=== PATIENT | male | born 1985 | race American Indian/Alaskan Native ===

== ENCOUNTER 2022-12-09 19:14 | Observation (INO) | payer MEDICAID ==
[2022-12-09] MEDS ORDERED: Zofran 4 MG/2 ML VIAL IV ONE (20:01)
[2022-12-09] MEDS ORDERED: PROTONIX 40 MG IV IV ONE ×2 (20:01→21:18)
[2022-12-09] MEDS ORDERED: Sodium Chloride 0.9% 1000 ML 1,000 ML IV STA (20:01)
--- NOTE | 2022-12-09 20:12 | ERPHSYRPT ---
- History of Present Illness Patient Subjective Stated Complaint: [facility] states that someone called in a person walking along [facility] [address] [facility], when he spoke to the patient he had some concerns about his well being. pt reports that he has a headache with photophobia and his feet are hurting from blisters. pt reports that he is currently homeless and has been outside a lot, mostly walking and hitchhiking. Triage Nursing Assessment: pt is aox3, pt with rambling speech but answers questions appropriately, pt afebrile, resps easy and non labored, pt with eyes closed tightly, pt reluctant to open eyes, pt radial pulses strong and equal, cap refill < 2 seconds, pt skin pink warm dry. pt with poor personal hygeine. Physician History: pt presents with law enforcement, [facility] with the [facility] states that someone called in a person walking along [facility], when he spoke to the patient he had some concerns about his well being. pt reports that he has a headache with photophobia and his feet are hurting from blisters. pt reports that he is currently homeless and has been outside a lot, mostly walking and hitchhiking. c/o abdominal pain. loss of appetite, has rambling speech Timing/Duration: today Associated Symptoms: abdominal pain, headaches Allergies/Adverse Reactions: No Known Drug Allergies Allergy (Unverified 12/09/22 19:51) Home Medications: No Reportable Medications [No Reported Medications] 12/09/22 [History] Hx Tetanus, Diphtheria Vaccination/Date Given: Yes Hx Influenza Vaccination/Date Given: No Hx Pneumococcal Vaccination/Date Given: No Immunizations Up to Date: No Travel Risk - International Travel Have you traveled outside of the country in past 3 weeks: No - Coronavirus Screening Are you exhibiting any of the following symptoms?: No - Vaccine Status Have you recieved a Covid-19 vaccination: No - Review of Systems Constitutional: Malaise, Weakness, No Fever, No Chills Eyes: No Symptoms Ears, Nose, & Throat: No Symptoms Respiratory: No Cough, No Dyspnea Cardiac: No Chest Pain, No Edema, No Syncope Abdominal/Gastrointestinal: Abdominal Pain, No Nausea, No Vomiting, No Diarrhea Genitourinary Symptoms: No Dysuria Musculoskeletal: No Back Pain, No Neck Pain Skin: No Rash Neurological: Headache, No Dizziness, No Focal Weakness, No Sensory Changes Psychological: No Symptoms Endocrine: No Symptoms All Other Systems: Reviewed and Negative - Past Medical History Pertinent Past Medical History: Yes Neurological History: Seizures Psycho-Social History: Anxiety - Past Surgical History Past Surgical History: No - Social History Smoking Status: Never smoker Exposure to second hand smoke: No Drug Use: none Patient Lives Alone: Yes - Nursing Vital Signs Nursing Vital Signs: Initial Vital Signs Temperature 98.2 F 12/09/22 19:34 Pulse Rate 82 12/09/22 19:34 Respiratory Rate 16 12/09/22 19:34 Blood Pressure 135/66 12/09/22 19:34 O2 Sat by Pulse Oximetry 99 12/09/22 19:34 Pain Scale Pain Intensity 4 - Physical Exam General Appearance: no apparent distress, alert Eye Exam: PERRL/EOMI, eyes nml inspection Ears, Nose, Throat Exam: normal ENT inspection, TMs normal, pharynx normal, moist mucous membranes Neck Exam: normal inspection, non-tender, supple, full range of motion Respiratory Exam: normal breath sounds, lungs clear, No respiratory distress Cardiovascular Exam: regular rate/rhythm, normal heart sounds, normal peripheral pulses Gastrointestinal/Abdomen Exam: soft, normal bowel sounds, No tenderness, No mass Back Exam: normal inspection, normal range of motion, No CVA tenderness, No vertebral tenderness Extremity Exam: normal inspection, normal range of motion, pelvis stable Neurologic Exam: alert, oriented x 3, cooperative, normal mood/affect, nml cerebellar function, nml station & gait, sensation nml, No motor deficits Skin Exam: normal color, warm, dry, No rash Lymphatic Exam: No adenopathy SpO2: 99 - Course Nursing assessment & vital signs reviewed: Yes - CT Exams Head CT Interpretation: Tele-radiologist Report, No/Intracranial Hemorrhag Ordered Tests: Active Orders 24 hr Category Date Time Status Telemetry q4h Care 12/09/22 20:49 Active HEAD WITHOUT CONTRAST [CT] Stat Exams 12/09/22 20:49 Completed AMYLASE Stat Lab 12/09/22 20:10 Completed CBC W DIFF Stat Lab 12/09/22 20:10 Completed CMP Stat Lab 12/09/22 20:10 Completed UA W/RFX UR CULTURE Stat Lab 12/09/22 20:01 Ordered Urine Triage Profile Stat Lab 12/09/22 20:01 Ordered Medication Summary Generic Name Dose Route Start Last Admin Trade Name Isabel PRN Reason Stop Dose Admin Potassium Chloride 20 meq in 100 mls @ 50 mls/hr 12/09/22 21:00 12/09/22 21:21 Potassium Chloride 20 Meq In Water 100ml IV 12/10/22 00:59 50 mls/hr Q2H DELMER Administration Discontinued Medications Generic Name Dose Route Start Last Admin Trade Name Isabel PRN Reason Stop Dose Admin Sodium Chloride 1,000 mls @ 999 mls/hr 12/09/22 20:01 12/09/22 21:21 Sodium Chloride 0.9% 1000 Ml IV 12/09/22 21:01 999 mls/hr .Q1H1M STA Administration Sodium Chloride Confirm 12/09/22 21:18 Sodium Chloride 0.9% 1000 Ml Administered 12/09/22 21:19 Dose 1,000 mls @ ud .ROUTE .STK-MED ONE Ondansetron HCl 4 mg 12/09/22 20:01 12/09/22 21:20 Ondansetron Hcl 4 Mg/2 Ml Vial IV 12/09/22 20:02 4 mg STAT ONE Administration Ondansetron HCl Confirm 12/09/22 21:17 Ondansetron Hcl 4 Mg/2 Ml Vial Administered 12/09/22 21:18 Dose 4 mg .ROUTE .STK-MED ONE Pantoprazole Sodium 40 mg 12/09/22 20:01 12/09/22 21:20 Pantoprazole 40 Mg Vial IV 12/09/22 20:02 40 mg STAT ONE Administration Pantoprazole Sodium Confirm 12/09/22 21:18 Pantoprazole 40 Mg Vial Administered 12/09/22 21:19 Dose 40 mg IV .STK-MED ONE Lab/Rad Data: Laboratory Result Diagrams 12/09/22 20:10 12/09/22 20:10 Laboratory Results 12/09/22 12/09/22 Range/Units 20:10 20:10 WBC 9.6 (4.0-10.5) x10^3/uL RBC 3.40 L (4.1-5.6) x10^6/uL Hgb 9.1 L (12.5-18.0) g/dL Hct 30.0 L (42-50) % MCV 88.2 (78-100) fL MCH 26.8 (26-32) pg MCHC 30.3 L (32-36) g/dL RDW 14.8 H (11.5-14.0) % Plt Count 351 (150-450) x10^3/uL MPV 9.9 (7.5-11.0) fL Gran % 70.1 H (36.0-66.0) % Immature Gran % (Auto) 0.3 (0.00-0.4) % Nucleat RBC Rel Count 0.0 (0.00-0.1) % Eos # (Auto) 0.27 (0-0.5) x10^3/uL Immature Gran # (Auto) 0.03 (0.00-0.03) x10^3u/L Absolute Lymphs (auto) 1.51 (1.0-4.6) x10^3/uL Absolute Monos (auto) 0.98 (0.0-1.3) x10^3/uL Absolute Nucleated RBC 0.00 (0.00-0.01) x10^3u/L Lymphocytes % 15.8 L (24.0-44.0) % Monocytes % 10.2 (0.0-12.0) % Eosinophils % 2.8 (0.00-5.0) % Basophils % 0.8 (0.0-0.4) % Absolute Granulocytes 6.70 (1.4-6.9) x10^3/uL Basophils # 0.08 (0-0.4) x10^3/uL Sodium 136 L (137-145) mmol/L Potassium 2.9 L* (3.5-5.1) mmol/L Chloride 103 (98-107) mmol/L Carbon Dioxide 24 (22-30) mmol/L Anion Gap 11.7 (5-15) MEQ/L BUN 9 (9-20) mg/dL Creatinine 0.45 L (0.66-1.25) mg/dL Estimated GFR > 60.0 ML/MIN Glucose 88 (74-106) mg/dL Calcium 8.3 L (8.4-10.2) mg/dL Total Bilirubin 0.40 (0.2-1.3) mg/dL AST 66 H (17-59) U/L ALT 24 (0-50) U/L Alkaline Phosphatase 103 (38-126) U/L Serum Total Protein 6.9 (6.3-8.2) g/dL Albumin 3.7 (3.5-5.0) g/dL Amylase 69 (30-110) U/L 0010 CT/HEAD WITHOUT CONTRAST CLINICAL HISTORY:headache COMPARISON:None. TECHNIQUE:An axial non-contrast CT scan of the brain was performed from the skull base to the high parietal region. FINDINGS: A well-defined cystic lesion is seen at the lateral aspect of the right orbital measuring 14 X 10 mm with extraorbital extension and extraconal extension displacing the globe medially. The lesion is mainly hypodense with a calcified focus within. The visualized brain parenchyma shows a normal appearance. No focal parenchymal abnormalities are demonstrated. Godwin-white matter differentiation is maintained. No midline shifts or deformity. No intracerebral or extra axial hematoma. Normal size and configuration of the cerebral ventricles. Normal CT appearance of the posterior fossa structures namely the cerebellar hemispheres, brainstem, and cerebellar peduncles. The IACs are unremarkable. The cerebello-pontine angles are clear. The pituitary gland, the pineal gland, and the optic chiasm are unremarkable. The osseous structures in the skull base are unremarkable. No definite calvarium fractures. Scanned paranasal sinuses are clear. IMPRESSION: 1. 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 2. Non-enhanced CT study for the brain is unremarkable. - Progress Progress: unchanged Discussed with Dr.: Other (Dr Castaneda, TeleHospitalist service) Counseled pt/family regarding: lab results, diagnosis, need for follow-up, rad jose j vallejo Medical Desision Making - Discussion of managment Care discussed with:: hospitalist Agreed on:: decision to admit Will see patient: in hospital - Social Determinants of Health Pt's dx & treatment plan are significantly limited by SDOH: Unemployed, financial hardships, housing insecurity, food insecurity, homelessness Limited access to: transportation, medical care - Diagnostic Testing Diagnostic test were ordered, analyzed, and reviewed by me: Yes Radiological Interpretation: Teleradiologist Report - Risk of complications The pt has a high risk of morbidity or mortality based on: Decision regarding hospitilization or escalation of hosp level of care - Departure Departure Disposition: In-patient Admission Clinical Impression: Hypokalemia due to loss of potassium, Dehydration, Homeless single person Anemia Qualifiers: Anemia type: unspecified type Qualified Code(s): D64.9 - Anemia, unspecified Condition: Fair Critical Care Time: Yes Critical Care Time(excluding separately billable procedures): Critical 30-74 mins Referrals: DOCTOR,NO FAMILY [Primary Care Provider] - Follow up/PCP as directed
[2022-12-09 20:23] LABS: BASOPHIL % 0.8 % (0.0-0.4); Basophil (Absolute #) 0.08 x10^3/uL (0-0.4); Eosinophil % 2.8 % (0.00-5.0); Eosinophil (Absolute #) 0.27 x10^3/uL (0-0.5); Hemoglobin 9.1 g/dL (12.5-18.0); IMMATURE GRAN # 0.03 x10^3u/L (0.00-0.03); IMMATURE GRAN % 0.3 % (0.00-0.4); Lymphocyte (Absolute #) 1.51 x10^3/uL (1.0-4.6); Lymphocytes % 15.8 % (24.0-44.0); Mean Cell Volume 88.2 fL (78-100); Mean Corpuscular Hemoglobin 26.8 pg (26-32); Mean Corpuscular Hgb Concent. 30.3 g/dL (32-36); Mean Platelet Volume 9.9 fL (7.5-11.0); Monocyte (Absolute #) 0.98 x10^3/uL (0.0-1.3); Monocytes % 10.2 % (0.0-12.0); Neutrophil % 70.1 % (36.0-66.0); Platelet Count 351 x10^3/uL (150-450); Red Cell Distribution Width 14.8 % (11.5-14.0); White Blood Count 9.6 x10^3/uL (4.0-10.5)
[2022-12-09 20:38] LABS: ALBUMIN 3.7 g/dL (3.5-5.0); ALKALINE PHOSPHATASE 103 U/L (38-126); AMYLASE 69 U/L (30-110); ANION GAP 11.7 MEQ/L (5-15); BLOOD UREA NITROGEN 9 mg/dL (9-20); CHLORIDE 103 mmol/L (98-107); Calcium 8.3 mg/dL (8.4-10.2); Carbon Dioxide 24 mmol/L (22-30); Creatinine 1 0.45 mg/dL (0.66-1.25); EST GLOMERULAR FILTRATION RATE > 60.0 ML/MIN; Glucose 88 mg/dL (74-106); SGOT/AST 66 U/L (17-59); SGPT/ALT 24 U/L (0-50); SODIUM 136 mmol/L (137-145); Total Protein 6.9 g/dL (6.3-8.2)
[2022-12-09 20:39] LABS: Potassium 2.9 mmol/L (3.5-5.1)
[2022-12-09] MEDS ORDERED: Zofran 4 MG/2 ML VIAL ONE (21:17)
[2022-12-09] MEDS ORDERED: Sodium Chloride 0.9% 1000 ML 1,000 ML ONE (21:18)
[2022-12-09] MEDS: POTASSIUM CHLORIDE 20 mEq IN WATER 100ML 20 MEQ/100 ML BAG IV SCH ×2 (21:21→23:04)
--- NOTE | 2022-12-09 22:07 | XRAY ---
CLINICAL HISTORY:headache COMPARISON:None. TECHNIQUE:An axial non-contrast CT scan of the brain was performed from the skull base to the high parietal region. FINDINGS: A well-defined cystic lesion is seen at the lateral aspect of the right orbital measuring 14 X 10 mm with extraorbital extension and extraconal extension displacing the globe medially. The lesion is mainly hypodense with a calcified focus within. The visualized brain parenchyma shows a normal appearance. No focal parenchymal abnormalities are demonstrated. Godwin-white matter differentiation is maintained. No midline shifts or deformity. No intracerebral or extra axial hematoma. Normal size and configuration of the cerebral ventricles. Normal CT appearance of the posterior fossa structures namely the cerebellar hemispheres, brainstem, and cerebellar peduncles. The IACs are unremarkable. The cerebello-pontine angles are clear. The pituitary gland, the pineal gland, and the optic chiasm are unremarkable. The osseous structures in the skull base are unremarkable. No definite calvarium fractures. Scanned paranasal sinuses are clear. IMPRESSION: 1. 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 2. Non-enhanced CT study for the brain is unremarkable. Electronically Signed by: Raine Gay MD. (12/09/2022 21:06:42 [employer])
[2022-12-09] MEDS ORDERED: Sodium Chloride 0.9% 1000 ML 1,000 ML IV SCH (23:14)
--- NOTE | 2022-12-10 00:17 | PCM.HP ---
History of Present Illness - Chief Complaint Chief Complaint: hypokalemia, dehydration, anemia History of Present Illness: 37 yo wm with hx of Seizure d/o(off meds), ? Chronic Abd pain presents after being picked up by police after pt was reported walking on highway. Pt is homeless.He apparently appeared dehydrated and had blisters on feet. He has no specific complaints at current. He states he will be arrested and taken to custodial but would not expound. He complained of MEDINA in ED. CT head unrevealing. He is reluctant to open eyes when talking. He was admitted for dehydration/hypokalemia. He was anemic but denied GI bleeding. - Review of Systems Constitutional: No Symptoms, No Fever Eyes: No Symptoms, Photophobia Ears, Nose, & Throat: No Symptoms Respiratory: No Symptoms Cardiac: No Symptoms Abdominal/Gastrointestinal: Abdominal Pain Genitourinary Symptoms: No Symptoms Musculoskeletal: Joint Pain Skin: Skin Lesions Neurological: No Symptoms Endocrine: No Symptoms Medications & Allergies Home Medications: Home Medication List No Reportable Medications [No Reported Medications] 12/09/22 [History Confirmed 12/09/22] Allergies/Adverse Reactions: Allergies Allergy/AdvReac Type Severity Reaction Status Date / Time No Known Drug Allergies Allergy Unverified 12/09/22 19:51 - Past Medical History Past Medical History: Yes Neurological History: Seizures Pyscho-Social History: Anxiety - Past Surgical History Past Surgical History: No - Social History Smoking Status: Never smoker Exposure to second hand smoke: No Alcohol: None Drug Use: none - Physical Exam Vital Signs: Vital Signs - 24 hr Temp Pulse Resp BP BP Pulse Ox 12/09/22 23:00 71 10 L 137/92 100 12/09/22 22:30 73 14 123/82 100 12/09/22 22:14 99 12/09/22 22:00 72 11 L 134/74 100 12/09/22 21:39 69 13 122/79 100 12/09/22 21:31 135/77 99 12/09/22 21:11 72 18 124/74 100 12/09/22 19:34 98.2 F 82 16 135/66 99 Neurologic Exam: alert, oriented x 3 Eye Exam: PERRL/EOMI Ears, Nose, Throat Exam: normal ENT inspection Neck Exam: normal inspection Respiratory Exam: normal breath sounds Cardiovascular Exam: regular rate/rhythm Gastrointestinal/Abdomen Exam: soft, normal bowel sounds Extremity Exam: normal inspection, normal range of motion Skin Exam: other (blisters on feet) Results - Labs Lab/Micro Results: Lab Results-Last 24 Hours 12/09/22 12/09/22 Range/Units 20:10 20:10 WBC 9.6 (4.0-10.5) x10^3/uL RBC 3.40 L (4.1-5.6) x10^6/uL Hgb 9.1 L (12.5-18.0) g/dL Hct 30.0 L (42-50) % MCV 88.2 (78-100) fL MCH 26.8 (26-32) pg MCHC 30.3 L (32-36) g/dL RDW 14.8 H (11.5-14.0) % Plt Count 351 (150-450) x10^3/uL MPV 9.9 (7.5-11.0) fL Gran % 70.1 H (36.0-66.0) % Immature Gran % (Auto) 0.3 (0.00-0.4) % Nucleat RBC Rel Count 0.0 (0.00-0.1) % Eos # (Auto) 0.27 (0-0.5) x10^3/uL Immature Gran # (Auto) 0.03 (0.00-0.03) x10^3u/L Absolute Lymphs (auto) 1.51 (1.0-4.6) x10^3/uL Absolute Monos (auto) 0.98 (0.0-1.3) x10^3/uL Absolute Nucleated RBC 0.00 (0.00-0.01) x10^3u/L Lymphocytes % 15.8 L (24.0-44.0) % Monocytes % 10.2 (0.0-12.0) % Eosinophils % 2.8 (0.00-5.0) % Basophils % 0.8 (0.0-0.4) % Absolute Granulocytes 6.70 (1.4-6.9) x10^3/uL Basophils # 0.08 (0-0.4) x10^3/uL Sodium 136 L (137-145) mmol/L Potassium 2.9 L* (3.5-5.1) mmol/L Chloride 103 (98-107) mmol/L Carbon Dioxide 24 (22-30) mmol/L Anion Gap 11.7 (5-15) MEQ/L BUN 9 (9-20) mg/dL Creatinine 0.45 L (0.66-1.25) mg/dL Estimated GFR > 60.0 ML/MIN Glucose 88 (74-106) mg/dL Calcium 8.3 L (8.4-10.2) mg/dL Total Bilirubin 0.40 (0.2-1.3) mg/dL AST 66 H (17-59) U/L ALT 24 (0-50) U/L Alkaline Phosphatase 103 (38-126) U/L Serum Total Protein 6.9 (6.3-8.2) g/dL Albumin 3.7 (3.5-5.0) g/dL Amylase 69 (30-110) U/L - Radiology Impressions Radiology Exams & Impressions: Radiology Procedures Category Date Time Status HEAD WITHOUT CONTRAST [CT] Stat Exams 12/09/22 20:49 Completed Assessment/Plan (1) Anemia Current Visit: Yes Status: Acute Qualifiers: Anemia type: unspecified type Qualified Code(s): D64.9 - Anemia, unspecified Assessment & Plan: 1. Anemia: etiology not clear. Suspect chronic. Repeat in am. Send Fe studies. 2. Hypokalemia: replete. 3. Dehydration: IVFs 4. FEN: oral diet Consider d/c in am Hima Castaneda MD entire encounter done via telemedicine Code(s): D64.9 - ANEMIA, UNSPECIFIED Telemedicine Encounter - Telemedicine Encounter Telemedicine Encounter: The entirety of this encounter was performed via Telemedicine"
[2022-12-10 04:07] VITALS: TEMP 97.9
[2022-12-10 04:33] LABS: Appearance Turbid (Clear); Bacteria None Seen /HPF (None Seen); Bilirubin Negative (Negative); Blood Negative (Negative); Epithelial Cells None Seen /HPF (None Seen); Glucose, Urine Negative (Negative); Ketones Trace (Negative); Leukocyte Esterase Negative (Negative); Nitrite Negative (Negative); Ph 5.5 (4.6-8.0); Protein,Urine Dip 300 (Negative); RBC 0-2 /HPF (0-5); WBC 0-2 /HPF (0-5)
[2022-12-10 04:37] LABS: ADD URINE CULTURE? NO (NO)
[2022-12-10 04:41] LABS: Amphetamine,Urine NEGATIVE (NEGATIVE); Barbiturate,Urine NEGATIVE (NEGATIVE); Benzodiazepine,Urine POSITIVE (NEGATIVE); Cocaine,Urine NEGATIVE (NEGATIVE); Methadone,Urine NEGATIVE (NEGATIVE); Opiate,Urine NEGATIVE (NEGATIVE); PCP,Urine NEGATIVE (NEGATIVE); THC,Urine NEGATIVE (NEGATIVE)
[2022-12-10 06:38] LABS: Absolute Neutrophil Ct (ANC) 4.03 x10^3/uL (1.4-6.9); BASOPHIL % 0.9 % (0.0-0.4); Basophil (Absolute #) 0.06 x10^3/uL (0-0.4); Eosinophil % 5.2 % (0.00-5.0); Eosinophil (Absolute #) 0.35 x10^3/uL (0-0.5); Hematocrit 29.2 % (42-50); Hemoglobin 8.7 g/dL (12.5-18.0); IMMATURE GRAN # 0.03 x10^3u/L (0.00-0.03); IMMATURE GRAN % 0.4 % (0.00-0.4); Lymphocyte (Absolute #) 1.51 x10^3/uL (1.0-4.6); Lymphocytes % 22.2 % (24.0-44.0); Mean Cell Volume 89.6 fL (78-100); Mean Corpuscular Hemoglobin 26.7 pg (26-32); Mean Corpuscular Hgb Concent. 29.8 g/dL (32-36); Mean Platelet Volume 11.2 fL (7.5-11.0); Monocyte (Absolute #) 0.81 x10^3/uL (0.0-1.3); Monocytes % 11.9 % (0.0-12.0); Neutrophil % 59.4 % (36.0-66.0); Platelet Count 318 x10^3/uL (150-450); Red Blood Count 3.26 x10^6/uL (4.1-5.6); White Blood Count 6.8 x10^3/uL (4.0-10.5)
[2022-12-10 07:05] VITALS: O2SAT 99
[2022-12-10 07:26] LABS: ALBUMIN 2.9 g/dL (3.5-5.0); ALKALINE PHOSPHATASE 83 U/L (38-126); ANION GAP 7.8 MEQ/L (5-15); BLOOD UREA NITROGEN 5 mg/dL (9-20); CHLORIDE 109 mmol/L (98-107); Calcium 7.5 mg/dL (8.4-10.2); Carbon Dioxide 24 mmol/L (22-30); Creatinine 1 0.44 mg/dL (0.66-1.25); EST GLOMERULAR FILTRATION RATE > 60.0 ML/MIN; Ferritin 8.88 ng/mL (17.9-464); Glucose 127 mg/dL (74-106); MAGNESIUM 1.6 mg/dL (1.6-2.3); Potassium 3.5 mmol/L (3.5-5.1); SGOT/AST 49 U/L (17-59); SGPT/ALT 20 U/L (0-50); SODIUM 137 mmol/L (137-145); Total Protein 5.8 g/dL (6.3-8.2)
[2022-12-10] MEDS ORDERED: Venofer 100 MG/5 ML IV ONE (08:15)
[2022-12-10] MEDS ORDERED: Venofer 100 MG/5 ML*** 200 MG in Sodium Chloride 0.9% 100 ML IV ONE (09:00)
[2022-12-10 11:26] VITALS: BP 122/77; PULSE 70; RESP 17
--- NOTE | 2022-12-10 12:00 | PCM.DS ---
Discharge Summary Date of Admission: 12/09/22 23:06 Date of Discharge: 12/10/22 Admitting Physician: ELSY MILTON MD Consults: Consults on Case 12/10/22 10:21 Consult,Blanca [Psychiatric Consult] STAT Primary Care Provider: NO FAMILY DOCTOR Allergies Allergies No Known Drug Allergies Allergy (Unverified 12/09/22 19:51) Hospital Summary - Hospital Course Hospital Course: 37 yo wm with hx of Seizure d/o(off meds), ? Chronic Abd pain presented to ER after being picked up by police after pt was reported walking on [place]. Pt is homeless. He apparently appeared dehydrated and had blisters on feet. He has no specific complaints currently. He states he will be arrested and taken to half-way but would not discuss further. He complained of MEDINA in ED. CT head unrevealing. He is reluctant to open eyes when talking. He was admitted for dehydration/hypokalemia. He was anemic but denied GI bleeding. Hypokalemia resolved this morning. IV iron started and usp through he asked for it to be stopped. He also asked for IV fluids to be stopped. Pt is not willing to speak with providers or nursing staff. Blankets removed from face and he kept eye closed and refused to speak. Psych consulted. Pt urinated in the bed and asked for AMA papers. Pt left AMA at 11:55. - Vitals & Intake/Output Vital Signs: Vital Signs Temperature 97.9 F 12/10/22 04:00 Pulse Rate 70 12/10/22 11:25 Respiratory Rate 17 12/10/22 11:25 Blood Pressure 122/77 12/10/22 11:25 O2 Sat by Pulse Oximetry 99 12/10/22 11:25 Intake & Output: Intake & Output 12/07/22 12/08/22 12/09/22 12/10/22 11:59 11:59 11:59 11:59 Intake Total 1291 Output Total 300 Balance 991 Weight 54.5 kg - Lab Result Diagrams: 12/10/22 04:00 12/10/22 04:00 Lab Results-Last 24 Hrs: Lab Results-Last 24 Hours 12/09/22 12/09/22 12/09/22 Range/Units 20:01 20:10 20:10 WBC 9.6 (4.0-10.5) x10^3/uL RBC 3.40 L (4.1-5.6) x10^6/uL Hgb 9.1 L (12.5-18.0) g/dL Hct 30.0 L (42-50) % MCV 88.2 (78-100) fL MCH 26.8 (26-32) pg MCHC 30.3 L (32-36) g/dL RDW 14.8 H (11.5-14.0) % Plt Count 351 (150-450) x10^3/uL MPV 9.9 (7.5-11.0) fL Gran % 70.1 H (36.0-66.0) % Immature Gran % (Auto) 0.3 (0.00-0.4) % Nucleat RBC Rel Count 0.0 (0.00-0.1) % Eos # (Auto) 0.27 (0-0.5) x10^3/uL Immature Gran # (Auto) 0.03 (0.00-0.03) x10^3u/L Absolute Lymphs (auto) 1.51 (1.0-4.6) x10^3/uL Absolute Monos (auto) 0.98 (0.0-1.3) x10^3/uL Absolute Nucleated RBC 0.00 (0.00-0.01) x10^3u/L Lymphocytes % 15.8 L (24.0-44.0) % Monocytes % 10.2 (0.0-12.0) % Eosinophils % 2.8 (0.00-5.0) % Basophils % 0.8 (0.0-0.4) % Absolute Granulocytes 6.70 (1.4-6.9) x10^3/uL Basophils # 0.08 (0-0.4) x10^3/uL Sodium 136 L (137-145) mmol/L Potassium 2.9 L* (3.5-5.1) mmol/L Chloride 103 (98-107) mmol/L Carbon Dioxide 24 (22-30) mmol/L Anion Gap 11.7 (5-15) MEQ/L BUN 9 (9-20) mg/dL Creatinine 0.45 L (0.66-1.25) mg/dL Estimated GFR > 60.0 ML/MIN Glucose 88 (74-106) mg/dL Calcium 8.3 L (8.4-10.2) mg/dL Magnesium (1.6-2.3) mg/dL Iron (49-181) ug/dL Ferritin (17.9-464) ng/mL Total Bilirubin 0.40 (0.2-1.3) mg/dL AST 66 H (17-59) U/L ALT 24 (0-50) U/L Alkaline Phosphatase 103 (38-126) U/L Serum Total Protein 6.9 (6.3-8.2) g/dL Albumin 3.7 (3.5-5.0) g/dL Amylase 69 (30-110) U/L Urine Color (Yellow) Urine Appearance (Clear) Urine pH (4.6-8.0) Ur Specific [place] (1.005-1.030) Urine Protein (Negative) Urine Glucose (UA) (Negative) mg/dL Urine Ketones (Negative) Urine Blood (Negative) Urine Nitrite (Negative) Urine Bilirubin (Negative) Urine Urobilinogen (0.2) mg/dL Ur Leukocyte Esterase (Negative) U Hyaline Cast (Auto) (0-2) /LPF Urine Microscopic RBC (0-5) /HPF Urine Microscopic WBC (0-5) /HPF Ur Epithelial Cells (None Seen) /HPF Urine Bacteria (None Seen) /HPF Urine Culture Reflexed (NO) Urine Opiates Level NEGATIVE (NEGATIVE) Ur Methadone NEGATIVE (NEGATIVE) Urine Barbiturates NEGATIVE (NEGATIVE) Ur Phencyclidine (PCP) NEGATIVE (NEGATIVE) Urine Amphetamine NEGATIVE (NEGATIVE) U Benzodiazepine Level POSITIVE (NEGATIVE) Urine Cocaine NEGATIVE (NEGATIVE) Urine Marijuana (THC) NEGATIVE (NEGATIVE) 12/10/22 12/10/22 12/10/22 Range/Units 03:35 04:00 04:00 WBC 6.8 (4.0-10.5) x10^3/uL RBC 3.26 L (4.1-5.6) x10^6/uL Hgb 8.7 L (12.5-18.0) g/dL Hct 29.2 L (42-50) % MCV 89.6 (78-100) fL MCH 26.7 (26-32) pg MCHC 29.8 L (32-36) g/dL RDW 15.0 H (11.5-14.0) % Plt Count 318 (150-450) x10^3/uL MPV 11.2 H (7.5-11.0) fL Gran % 59.4 (36.0-66.0) % Immature Gran % (Auto) 0.4 (0.00-0.4) % Nucleat RBC Rel Count 0.0 (0.00-0.1) % Eos # (Auto) 0.35 (0-0.5) x10^3/uL Immature Gran # (Auto) 0.03 (0.00-0.03) x10^3u/L Absolute Lymphs (auto) 1.51 (1.0-4.6) x10^3/uL Absolute Monos (auto) 0.81 (0.0-1.3) x10^3/uL Absolute Nucleated RBC 0.00 (0.00-0.01) x10^3u/L Lymphocytes % 22.2 L (24.0-44.0) % Monocytes % 11.9 (0.0-12.0) % Eosinophils % 5.2 H (0.00-5.0) % Basophils % 0.9 (0.0-0.4) % Absolute Granulocytes 4.03 (1.4-6.9) x10^3/uL Basophils # 0.06 (0-0.4) x10^3/uL Sodium 137 (137-145) mmol/L Potassium 3.5 D (3.5-5.1) mmol/L Chloride 109 H (98-107) mmol/L Carbon Dioxide 24 (22-30) mmol/L Anion Gap 7.8 (5-15) MEQ/L BUN 5 L (9-20) mg/dL Creatinine 0.44 L (0.66-1.25) mg/dL Estimated GFR > 60.0 ML/MIN Glucose 127 H (74-106) mg/dL Calcium 7.5 L (8.4-10.2) mg/dL Magnesium 1.6 (1.6-2.3) mg/dL Iron (49-181) ug/dL Ferritin 8.88 L (17.9-464) ng/mL Total Bilirubin 0.20 (0.2-1.3) mg/dL AST 49 (17-59) U/L ALT 20 (0-50) U/L Alkaline Phosphatase 83 (38-126) U/L Serum Total Protein 5.8 L (6.3-8.2) g/dL Albumin 2.9 L (3.5-5.0) g/dL Amylase (30-110) U/L Urine Color Yellow (Yellow) Urine Appearance Turbid A (Clear) Urine pH 5.5 (4.6-8.0) Ur Specific [place] 1.020 (1.005-1.030) Urine Protein 300 A (Negative) Urine Glucose (UA) Negative (Negative) mg/dL Urine Ketones Trace A (Negative) Urine Blood Negative (Negative) Urine Nitrite Negative (Negative) Urine Bilirubin Negative (Negative) Urine Urobilinogen 1.0 A (0.2) mg/dL Ur Leukocyte Esterase Negative (Negative) U Hyaline Cast (Auto) 3-5 A (0-2) /LPF Urine Microscopic RBC 0-2 (0-5) /HPF Urine Microscopic WBC 0-2 (0-5) /HPF Ur Epithelial Cells None Seen (None Seen) /HPF Urine Bacteria None Seen (None Seen) /HPF Urine Culture Reflexed NO (NO) Urine Opiates Level (NEGATIVE) Ur Methadone (NEGATIVE) Urine Barbiturates (NEGATIVE) Ur Phencyclidine (PCP) (NEGATIVE) Urine Amphetamine (NEGATIVE) U Benzodiazepine Level (NEGATIVE) Urine Cocaine (NEGATIVE) Urine Marijuana (THC) (NEGATIVE) 12/10/22 12/10/22 Range/Units 05:30 06:50 WBC (4.0-10.5) x10^3/uL RBC (4.1-5.6) x10^6/uL Hgb (12.5-18.0) g/dL Hct (42-50) % MCV (78-100) fL MCH (26-32) pg MCHC (32-36) g/dL RDW (11.5-14.0) % Plt Count (150-450) x10^3/uL MPV (7.5-11.0) fL Gran % (36.0-66.0) % Immature Gran % (Auto) (0.00-0.4) % Nucleat RBC Rel Count (0.00-0.1) % Eos # (Auto) (0-0.5) x10^3/uL Immature Gran # (Auto) (0.00-0.03) x10^3u/L Absolute Lymphs (auto) (1.0-4.6) x10^3/uL Absolute Monos (auto) (0.0-1.3) x10^3/uL Absolute Nucleated RBC (0.00-0.01) x10^3u/L Lymphocytes % (24.0-44.0) % Monocytes % (0.0-12.0) % Eosinophils % (0.00-5.0) % Basophils % (0.0-0.4) % Absolute Granulocytes (1.4-6.9) x10^3/uL Basophils # (0-0.4) x10^3/uL Sodium (137-145) mmol/L Potassium (3.5-5.1) mmol/L Chloride (98-107) mmol/L Carbon Dioxide (22-30) mmol/L Anion Gap (5-15) MEQ/L BUN (9-20) mg/dL Creatinine (0.66-1.25) mg/dL Estimated GFR ML/MIN Glucose (74-106) mg/dL Calcium (8.4-10.2) mg/dL Magnesium 1.6 (1.6-2.3) mg/dL Iron 16 L (49-181) ug/dL Ferritin (17.9-464) ng/mL Total Bilirubin (0.2-1.3) mg/dL AST (17-59) U/L ALT (0-50) U/L Alkaline Phosphatase (38-126) U/L Serum Total Protein (6.3-8.2) g/dL Albumin (3.5-5.0) g/dL Amylase (30-110) U/L Urine Color (Yellow) Urine Appearance (Clear) Urine pH (4.6-8.0) Ur Specific [place] (1.005-1.030) Urine Protein (Negative) Urine Glucose (UA) (Negative) mg/dL Urine Ketones (Negative) Urine Blood (Negative) Urine Nitrite (Negative) Urine Bilirubin (Negative) Urine Urobilinogen (0.2) mg/dL Ur Leukocyte Esterase (Negative) U Hyaline Cast (Auto) (0-2) /LPF Urine Microscopic RBC (0-5) /HPF Urine Microscopic WBC (0-5) /HPF Ur Epithelial Cells (None Seen) /HPF Urine Bacteria (None Seen) /HPF Urine Culture Reflexed (NO) Urine Opiates Level (NEGATIVE) Ur Methadone (NEGATIVE) Urine Barbiturates (NEGATIVE) Ur Phencyclidine (PCP) (NEGATIVE) Urine Amphetamine (NEGATIVE) U Benzodiazepine Level (NEGATIVE) Urine Cocaine (NEGATIVE) Urine Marijuana (THC) (NEGATIVE) - Radiology Exams Ordered Rad Exams-Entire Visit: Radiology Procedures Category Date Time Status HEAD WITHOUT CONTRAST [CT] Stat Exams 12/09/22 20:49 Completed - Procedures and Test Procedures and Tests throughout Hospitalization: Therapy Orders & Screens 12/10/22 01:02 OT Screen per Nursing Assess ONCE Comment: Protocol Order Physician Instructions: Greater than 3 points order OT Admission Screening Reason For Exam: Triggered on Admission Diagnosis: hypokalemia, dehydration, anemia Open Wound/Cellutlitis/Pressure Ulcers: Yes: blister rt great toe Acute Fx/ORIF/Change in wt bearing status: No Severe MUSCULOSKELETAL pain: No ADL Dysfunction: No Acute CVA w/Hemiparesis/Hemiplegia: No Decreased Functional Mobility/Strength: No Sprain/Strain: No Acute Post-op Mobility Dysfunction: No Total Points: 5 PT Screen per Nursing Assess ONCE Comment: Protocol Order Physician Instructions: Greater than 3 points order PT Admission Screenin Reason For Exam: Triggered on Admission Diagnosis: hypokalemia, dehydration, anemia Open Wound/Cellutlitis/Pressure Ulcers: Yes: blister rt great toe Acute Fx/ORIF/Change in wt bearing status: No Severe MUSCULOSKELETAL pain: No ADL Dysfunction: No Acute CVA w/Hemiparesis/Hemiplegia: No Decreased Functional Mobility/Strength: No Sprain/Strain: No Acute Post-op Mobility Dysfunction: No Total Points: 5 Discharge Exam General Appearance: no apparent distress, alert, other Neurologic Exam: sensation nml, uncooperative, other (Non- willing to speak with provider. Was able to walk out and ask for AMA papers to sign.), No motor deficits Eye Exam: PERRL, EOMI, eyes nml inspection Ears, Nose, Throat Exam: normal ENT inspection, pharynx normal, moist mucous membranes Neck Exam: normal inspection, non-tender, supple, full range of motion Respiratory Exam: normal breath sounds, lungs clear, No respiratory distress Cardiovascular Exam: regular rate/rhythm, normal heart sounds Gastrointestinal/Abdomen Exam: soft, No tenderness, No mass Male Genitalia Exam: deferred Rectal Exam: deferred Back Exam: normal inspection, normal range of motion, No CVA tenderness, No vertebral tenderness Extremity Exam: normal inspection, normal range of motion Skin Exam: warm, dry, other (Small various blisters to BL feet, malodorus, no drainage or discharge. Sunburn to face and BL lower arms.) Final Diagnosis/Problem List - Final Discharge Diagnosis/Problem (1) Hypokalemia due to loss of potassium Current Visit: Yes Status: Acute Assessment & Plan: 12/09/22 K+ 2.9- replaced 12/10/22 K+ 3.5- resolved Code(s): E87.6 - HYPOKALEMIA (2) Non-compliance Current Visit: Yes Status: Acute Assessment & Plan: - refused IV fluids today -received 1/2 bag of venofer and refused remainder - Refused to speak with staff - Tele- psych consulted- he did not speak with them - Left AMA Code(s): Z91.199 - PT NONCOMPL WITH OTHER MED TRTMT AND REGIMEN D/T UNSP REASON (3) Anemia Current Visit: Yes Status: Acute Assessment & Plan: - unknown cause - Appears to be chronic iron deficiency - Venofer started IV - only received 1/2 bag as pt refused Code(s): D64.9 - ANEMIA, UNSPECIFIED (4) Dehydration Current Visit: Yes Status: Acute Assessment & Plan: - NS bolus gave in Er - NS @ 100ml/hr resumed - Pt refused IV fluids today - refusing to eat today - he did eat and drink yesterday per nursing staff Code(s): E86.0 - DEHYDRATION (5) Homeless single person Current Visit: Yes Status: Acute Assessment & Plan: - psych consult Code(s): Z59.00 - HOMELESSNESS UNSPECIFIED (6) Friction blisters of sole of left foot Current Visit: Yes Status: Acute Assessment & Plan: - keep clean and dry Code(s): S90.822A - BLISTER (NONTHERMAL), LEFT FOOT, INITIAL ENCOUNTER (7) Friction blisters of sole of right foot Current Visit: Yes Status: Acute Assessment & Plan: - keep clean and dry Code(s): S90.821A - BLISTER (NONTHERMAL), RIGHT FOOT, INITIAL ENCOUNTER - Discharge Discharge Date: 12/10/22 Disposition: Against Medical Advice Condition: Fair Prescriptions: No Action No Reportable Medications [No Reported Medications] Follow up with: DOCTOR,NO FAMILY [Primary Care Provider] -
== END 2022-12-10 11:45 | disposition left against medical advice (07) ==
LOC: ED 19:14 → MED SURG 23:06
PROVIDERS: ADMIT Internal Medicine Critical Care Medicine; ATTEND Internal Medicine Critical Care Medicine
DX: E87.6 Hypokalemia (principal); Z91.199 Patient's noncompliance with other medical treatment and regimen due to unspecified reason; D64.9 Anemia, unspecified; E86.0 Dehydration; Z59.00 Homelessness unspecified; S90.822A Blister (nonthermal), left foot, initial encounter; S90.821A Blister (nonthermal), right foot, initial encounter; R10.9 Unspecified abdominal pain; Z20.828 Contact with and (suspected) exposure to other viral communicable diseases
CPT/HCPCS: 36415; 70450; 80053; 80307; 81001; 82150; 82728; 83540; 83735; 85025; 93041; 93268; 96360; 96365; 96374; 96375; 99285; 99291; G0378; 82747; 85014; J1756; J2405; J3480